=== PATIENT | male | born 1995 | race Caucasian/White ===

== ENCOUNTER 2023-08-18 08:42 | Outpatient (AMB) | payer OTHER, SELFPAY ==
--- NOTE | 2023-08-18 08:46 | MHC.PC.OV ---
Vital Signs 08/18/23 08:49 Height 6 ft 2 in Weight 163 lb 8 oz BMI 21.0 BP 120/82 Blood Pressure Location Lt brachial Position Sitting Respiration 14 Pulse 54 Pulse Source Pulse Oximeter Temp 97.5 F Temp Source Oral Pulse Oximetry (%) 96 Oxygen Delivery Method Room Air Intake Visit Reasons: est care Intake Note: new patient visit Manager Completions: Present Allergies No Known Allergies Allergy (Verified 08/18/23 08:46) Tobacco use date assessed: 08/18/23 Dental Screening Dental Screen Date: 08/18/23 Did you have a dental visit in the last 12 months?: Yes Did you have a dental problem in the last 6 months where you did not have access to dental care?: No Was dental information given to patient?: Patient has dentist HPI HPI Comments History of Present Illness Details This is a 28 year old male presenting to [facility]. He is in need of a physical exam. 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 He lives with his girlfriend. He relocated to this area recently. He endorses a rash in the right groin for a couple months. It doesn't bother him, and he says it looks like jock itch. Denies exposures to STIs. I reviewed his immunization record on his phone. He will sign a release or have this sent via the patient portal. His last Tdap was in 10/2014. He will schedule an eye exam. He just established care with a dentist. FOR[facility]LY [facility], [facility] Medical History (Updated 08/18/23 @ 11:58 by SABA Carreno) Testicular torsion Surgical History (Updated 08/18/23 @ 09:40 by SABA Carreno) H/O wisdom tooth extraction Right testicular torsion Family History (Updated 08/18/23 @ 09:43 by SABA Carreno) Mother Cancer of unknown origin Brother Colon polyp Father No problems noted. Brother No problems noted. 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 1. Little interest or pleasure in doing things: not at all 2. Feeling down, depressed, or hopeless: not at all 3. Trouble falling or staying asleep, or sleeping too much: not at all 4. Feeling tired or having little energy: not at all 5. Poor appetite or overeating: not at all 6. Feeling bad about yourself - or that you are a failure or have let yourself or your family down: not at all 7. Trouble concentrating on things, such as reading the newspaper or watching television: not at all 8. Moving or speaking so slowly that other people could have noticed. Or the opposite - being so fidgety or restless that you have been moving around a lot more than usual: not at all 9. Thoughts that you would be better off or of hurting yourself in some way: not at all Total score: 0 34908 - PHQ-9 Billing: Yes Source: Developed by Drs. Joe Cano, Matilda Rosales, Buck Ribeiro and colleagues, with an educational denise from [employer]. Thrive Questionnaire Date Thrive assessed: 08/18/23 I am a: Patient What is your living situation today?: I have a steady place to live Within the past 12 months, did the food you bought not last and you didn't have the money to get more?: Never true Within the past 12 months, did you worry whether your food would run out before you got money to buy more?: Never true Do you have trouble paying for medicines?: No Do you have trouble getting transportation to medical appointments?: No Do you have trouble paying your heating and electricity bill?: No Do you have trouble taking care of your child, family member or friend?: No Do you have trouble with day-to-day activities such as bathing, preparing meals, shopping, managing finances, etc.?: No Are you currently unemployed and looking for a job?: No Are you interested in more education?: No Please select the resources that you would like help with: None THRIVE Score: 0 AUDIT C Alcohol Use Questionnaire (AUDIT-C) 1. How often do you have a drink containing alcohol?: Never 3. How often do you have six or more drinks on one occasion?: Never Total Score: 0 Review of Systems Const All systems reviewed & are unremarkable except as noted in HPI and below Physical exam (Primary Care) Vital Signs: Last Vital Signs Temp 97.5 F 08/18/23 08:49 Pulse 54 08/18/23 08:49 Resp 14 08/18/23 08:49 BP 120/82 08/18/23 08:49 Pulse Ox 96 08/18/23 08:49 Oxygen Delivery Method Room Air 08/18/23 08:49 BMI result Body Mass Index 21.0 Tobacco/Smoking Status: Tobacco use Status Tobacco use date assessed 08/18/23 08/18/23 08:53 Patient Tobacco Use Status Never used Tobacco 08/18/23 08:53 e-Cigarette/Vaping Use Currently Using (on and off 08/18/23 08:53 vape user) PHQ-9: PHQ-9 Score PHQ-9: Total score 0 08/18/23 08:55 Thrive Assessment: Date of Thrive Assessment Date Thrive assessed 08/18/23 08/18/23 08:55 Const General: no acute distress and alert Nutritional Appearance: well nourished Orientation/consciousness: patient oriented x3 HENMT Head: Yes atraumatic Ears: external ears normal, TM's normal bilaterally and EAC's normal General nose exam: Normal nares present and No nasal discharge present Mouth: Normal oral and palatal mucosa present Teeth and gingiva: dentition normal Throat: Yes posterior oropharynx normal Eyes Pupils: Equal, round and reactive pupils present EOM: EOMs intact bilaterally Neck Thyroid: Thyroid normal Lymphatic: no lymphadenopathy noted Resp Effort & Inspection: normal respiratory effort Auscultation: clear to auscultation bilaterally Cardio Rate: regular rate Rhythm: regular rhythm Heart sounds: S1 normal heart sound present and S2 normal heart sound present Peripheral pulses: Peripheral pulses 2+ throughout GI Palpation (GI): Soft to palpation and No hepatosplenomegaly present Auscultation: normal bowel sounds Other: No palpable hernias or masses. Skin Other: Hyperpigmented mildly erythematous macular rash in the left pubic area. No discharge, swelling or tenderness. Neuro General: patient oriented x3, gait normal and moves all extremities Cranial nerves: Yes Equal, round and reactive pupils present Cognition (Neuro): normal cognition Extrem General: Yes full ROM Psych Appearance: grossly normal Affect: normal affect Attitude: cooperative Thought process: Normal thought process present Assessment and Plan Assessment & Plan (1) Annual physical exam: Code(s): Z00.00 - Encounter for general adult medical examination without abnormal findings Plan: Patient is seen today for a routine physical. As part of this visit we reviewed the following issues, which are considered and essential part of preventative health in this age group: - Testicular cancer screening, which includes self exam teaching - Blood pressure screening annually - Cholesterol screening - Screening for depression - Prevention of and/or testing for infectious diseases - declines screening for STIs. - Education about skin cancer - Recommendations about immunizations - Recommendation of an eye exam - Screening for substance abuse (2) Tinea cruris: Code(s): B35.6 - Tinea cruris Plan: Rx Lotrimin cream. Preventative strategy discussed. Follow up if there is no resolution. Orders: Orders Comprehensive Met. Panel Today Z00.00 - Encounter for general adult medical examination without abnormal findings, Z13.6 - Encounter for screening for cardiovascular disorders Lipid Panel Today Z00.00 - Encounter for general adult medical examination without abnormal findings, Z13.6 - Encounter for screening for cardiovascular disorders Medications: New clotrimazole 1% 1 appl topical BID 2 weeks 30 grams 1RF Refilled clotrimazole 1% 1 appl topical BID 2 weeks 30 grams 1RF Coding Level of Care Code New Pt Prev Care 18-39yr(54017 Diagnoses Annual physical exam Z00.00 Tinea cruris B35.6
[2023-08-18 08:49] VITALS: BP 120/82; PULSE 54; RESP 14; TEMP 36.4; O2SAT 96; BMI 21.0
== END 2023-08-18 12:56 | disposition home or self-care (01) ==
PROVIDERS: PCP Physician Assistant Medical; Visit Provider Physician Assistant Medical
DX: Z00.00 Encounter for general adult medical examination without abnormal findings (principal); B35.6 Tinea cruris
CPT/HCPCS: 99385

== ENCOUNTER 2023-08-18 09:36 | Outpatient (REF) | payer OTHER, SELFPAY ==
[2023-08-18 12:24] LABS: Alanine Aminotransferase 20 U/L (0-40); Albumin Level 4.8 g/dL (3.5-5.0); Alkaline Phosphatase 60 U/L (39-117); Anion Gap 7 (12-20); Aspartate Amino Transferase 21 U/L (5-37); Bilirubin Total 0.9 mg/dL (0.0-1.0); Blood Urea Nitrogen 13 mg/dL (9-16); Calcium 10.1 mg/dL (8.4-10.2); Carbon Dioxide 34 mmol/L (22-29); Chloride 102 mmol/L (96-108); Cholesterol 191 mg/dL (<200); Estimated Glomerular Filt Rate > 60; Glucose Random 81 mg/dL (60-115); HDL Cholesterol 65 mg/dL (>40); LDL Cholesterol Calculated 119 mg/dL (<100); Potassium 4.1 mmol/L (3.3-5.1); Sodium 139 mmol/L (135-145); Total Protein 7.5 g/dL (6.5-8.0); Triglycerides 39 mg/dL (<150)
== END 2023-08-18 09:37 | disposition home or self-care (01) ==
LOC: HO.WFDLDS 09:36
PROVIDERS: Visit Provider Physician Assistant Medical
DX: Z00.00 Encounter for general adult medical examination without abnormal findings (principal); Z13.6 Encounter for screening for cardiovascular disorders
CPT/HCPCS: 36415; 80053; 80061

== ENCOUNTER 2024-07-12 15:25 | Outpatient (AMB) | payer OTHER, SELFPAY ==
--- NOTE | 2024-07-12 15:33 | AM.OFFVISNUR ---
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
== END 2024-07-12 15:32 | disposition home or self-care (01) ==
LOC: HO.HMCFM 15:25
PROVIDERS: PCP Physician Assistant Medical; Visit Provider Physician Assistant Medical
DX: Z23 Encounter for immunization (principal)

== ENCOUNTER → 2024-07-12 15:25 | Outpatient (BNVA) | payer OTHER, SELFPAY | PROVIDERS: PCP Physician Assistant Medical; Visit Provider Physician Assistant Medical | DX: Z23 Encounter for immunization (principal) | CPT/HCPCS: 90471; 90715 ==

== ENCOUNTER 2024-11-15 08:26 | Outpatient (AMB) | payer OTHER, SELFPAY ==
--- NOTE | 2024-11-15 08:28 | A.OFFPC_ITS ---
Vital Signs 11/15/24 08:35 Height 6 ft 2.11 in Weight 165 lb 2 oz BMI 21.1 BP 102/62 Blood Pressure Location Rt brachial Position Sitting Respiration 14 Pulse 58 Pulse Source Pulse Oximeter Temp 97.3 F Temp Source Temporal Artery Scan Pulse Oximetry (%) 99 Oxygen Delivery Method Room Air Intake Visit Reasons: Annual pe Intake Note: Sim presents in the office today for his annual physical. Allergies No Known Allergies Allergy (Verified 11/15/24 08:32) Medication List - Last Reconciled 11/15/24 by SABA Carreno No Known Home Meds Tobacco use date assessed: 11/15/24 Dental Screening Dental Screen Date: 11/15/24 Did you have a dental visit in the last 12 months?: Yes Did you have a dental problem in the last 6 months where you did not have access to dental care?: No Was dental information given to patient?: Patient has dentist HPI HPI Comments History of Present Illness Details This is a 29-year-old male presenting for a physical exam. He recently got engaged. He is getting next October. His fiancee noticed a mole on his back. They are not sure if it has had any changes. It does not bother him. Denies family history of skin cancer. 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 I previously reviewed his immunization record on his phone. His last Tdap was in 10/2014. I explained that he is due and this is recommended, but he declined it today. I also recommended the seasonal influenza vaccine. Brother diagnosed with colon polyp around age 31. He is unsure if it was precancerous. He is going to contact him for additional information. Denies family history of colon cancer. He will schedule an eye exam. He sees a dentist regularly. ROS: Constitutional: No unexplained weight loss, fever, chills, fatigue or night sweats. Eyes: No vision changes, blurry vision, double vision, eye pain, eye redness, eye discharge. ENT: No hearing loss, sneezing, congestion, runny nose or sore throat. Respiratory: No shortness of breath, cough or sputum production. Cardiovascular: No chest pain, chest pressure or chest discomfort. No palpitations or pedal edema. Gastrointestinal: No anorexia, nausea, vomiting or diarrhea. No abdominal pain or blood in stool. Genitourinary: No dysuria, hematuria, urinary frequency. Denies testicular pain, swelling, masses. Neurologic: No headache, dizziness, syncope, unilateral weakness, ataxia, numbness or tingling in the extremities. Musculoskeletal: No muscle pain, back pain, joint pain or swelling. Hematologic/Lymphatics: No bleeding or bruising. No painful lymph nodes. Skin: See HPI. No rash or itching. Endocrine: No cold or heat intolerance. No polyuria or polydipsia. Psychiatric: No depression or anxiety. No SI/HI. Physical exam: Constitutional: Alert, in no distress. Head: Normocephalic. Eyes: Pupils are equal, round and reactive to light. Extraocular muscles intact. Ear, Nose and Throat: Canals clear. TMs normal. Normal nasal mucosa. No nasal discharge. No oral lesions. Neck: Supple, Full range of motion. No lymphadenopathy. No palpable thyroid masses. Respiratory: Clear to auscultation. Cardiovascular: S1 S2 regular. No murmurs. Gastrointestinal: Abdomen soft, non-tender, non-distended. Normal bowel sounds. No palpable masses. Genitourinary: Patient deferred. Neurologic: No focal neurological deficits. Symmetric patellar reflexes. Moves all extremities spontaneously. Sensation intact bilaterally. Skin: There is a round, symmetric, mildly raised light brown nevus on the lower back with 1 smaller region of darker brown color. The surrounding skin is normal. Musculoskeletal: No gross deformities. Normal range of motion. Extremities: Warm and well perfused. No clubbing, cyanosis or edema. Intact peripheral pulses. Psychiatric: Normal mood and affect [facility] Medical History (Updated 11/15/24 @ 09:12 by SABA Carreno) Nevus of back Family history of colonic polyps Routine physical examination Testicular torsion Surgical History (Updated 11/15/24 @ 09:03 by SABA Carreno) H/O wisdom tooth extraction Right testicular torsion Family History (Updated 11/15/24 @ 08:33 by Etta Keith MA) Mother Cancer of unknown origin Brother Colon polyp Father No problems noted. Brother No problems noted. 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 1. Little interest or pleasure in doing things: not at all 2. Feeling down, depressed, or hopeless: not at all 3. Trouble falling or staying asleep, or sleeping too much: several days 4. Feeling tired or having little energy: not at all 5. Poor appetite or overeating: not at all 6. Feeling bad about yourself - or that you are a failure or have let yourself or your family down: not at all 7. Trouble concentrating on things, such as reading the newspaper or watching television: not at all 8. Moving or speaking so slowly that other people could have noticed. Or the opposite - being so fidgety or restless that you have been moving around a lot more than usual: not at all 9. Thoughts that you would be better off or of hurting yourself in some way: not at all Total score: 1 Depression Screening Interpretation: Negative Depression Screening Done: Yes 53323 - PHQ-9 Billing: Yes Source: Developed by Drs. Joe Cano, Matilda Rosales, Buck Ribeiro and colleagues, with an educational denise from [employer]. Thrive Questionnaire Date Thrive assessed: 11/15/24 I am a: Patient What is your living situation today?: I have a steady place to live Within the past 12 months, did the food you bought not last and you didn't have the money to get more?: Never true Within the past 12 months, did you worry whether your food would run out before you got money to buy more?: Never true Do you have trouble paying for medicines?: I choose not to answer this question Do you have trouble getting transportation to medical appointments?: No Do you have trouble paying your heating and electricity bill?: No Do you have trouble taking care of your child, family member or friend?: No Do you have trouble with day-to-day activities such as bathing, preparing meals, shopping, managing finances, etc.?: No Are you currently unemployed and looking for a job?: No Are you interested in more education?: Yes Please select the resources that you would like help with: None Currently or been in a relationship where the following occur: No concerns reported THRIVE Score: 0 AUDIT C Alcohol Use Questionnaire (AUDIT-C) 1. How often do you have a drink containing alcohol?: Monthly or less 2. How many drinks containing alcohol do you have on a typical day when you are drinking?: 3 or 4 3. How often do you have six or more drinks on one occasion?: Less than monthly Total Score: 3 CHARLY-7 AMB Questionnaire CHARLY-7 Date CHARLY - 7 assessed: 11/15/24 Feeling nervous, anxious, or on edge: 0 = Not at all Not being able to stop or control worryin = Not at all Worrying too much about different things: 0 = Not at all Trouble relaxin = Not at all Being so restless that it is hard to sit still: 0 = Not at all Becoming easily annoyed or irritable: 0 = Not at all Feeling afraid as if something awful might happen: 0 = Not at all Total CHARLY-7 score (0-4 normal; 5-9 mild; 10-14 moderate; 15-21 severe): 0 Source: Developed by Drs. Joe Cano, Matilda Rosales, Buck Ribeiro and colleagues, with an educational denise from [employer]. CHARLY-7 Assessment Billing CHARLY-7 Assessment Tool: CHARLY-7 Assessment 15456 Physical exam (Primary Care) Vital Signs: Last Vital Signs Temp 97.3 F 11/15/24 08:35 Pulse 58 11/15/24 08:35 Resp 14 11/15/24 08:35 BP 102/62 11/15/24 08:35 Pulse Ox 99 11/15/24 08:35 Oxygen Delivery Method Room Air 11/15/24 08:35 BMI result Body Mass Index 21.1 Tobacco/Smoking Status: Tobacco use Status Tobacco use date assessed 11/15/24 11/15/24 08:39 Patient Tobacco Use Status Never used Tobacco 11/15/24 08:31 e-Cigarette/Vaping Use Currently Using (on and off 11/15/24 08:31 vape user) PHQ-9: PHQ-9 Score PHQ-9: Total score 1 11/15/24 08:31 Depression Screening Interpretation: Negative Thrive Assessment: Date of Thrive Assessment Date Thrive assessed 11/15/24 11/15/24 08:31 Currently or been in a relationship where the following occur: No concerns reported Coding Level of Care Code Est Pt Prev Care 18-39y(83029) Diagnoses Routine physical examination Z00.00 Nevus of back D22.5 Family history of colonic polyps Z83.719 Additional Codes CHARLY-7 Assessment Billing - CHARLY-7 Assessment Tool: CHARLY-7 Assessment 47732 ([id number]) PHQ-9 - 08316 - PHQ-9 Billing: Yes ([id number]) Assessment & Plan Assessment & Plan (1) Routine physical examination: Code(s): Z00.00 - Encounter for general adult medical examination without abnormal findings Category: Medical Plan: Patient is seen today for a routine physical. As part of this visit we reviewed the following issues, which are considered and essential part of preventative health in this age group: - Testicular cancer screening, which includes self exam teaching - Screening for colon cancer - Blood pressure screening - Cholesterol screening - Nutritional and exercise counseling - Counseling of injury prevention including fire prevention, smoke alarms and seat belt usage - Screening for depression - Prevention of and/or testing for infectious diseases - Education about skin cancer - Recommendations about immunizations - Recommendation of an eye exam - Screening for substance abuse (2) Nevus of back: Code(s): D22.5 - Melanocytic nevi of trunk Category: Medical Plan: Refer to dermatology. (3) Family history of colonic polyps: Code(s): Z83.719 - Family history of colon polyps, unspecified Category: Medical Plan: Refer to Gastroenterology for consideration of screening colonoscopy. He will try to obtain additional information from his brother. Plan Follow up in 1 year for annual physical exam. Orders: Orders Complete Blood Count no Diff Today Z00.00 - Encounter for general adult medical examination without abnormal findings Comprehensive Met. Panel Today Z00.00 - Encounter for general adult medical examination without abnormal findings Lipid Panel Today Z00.00 - Encounter for general adult medical examination without abnormal findings Referrals Gastroenterology Referral Z83.719 - Family history of colon polyps, unspecified Dermatology Referral D22.5 - Melanocytic nevi of trunk
[2024-11-15 08:35] VITALS: BP 102/62; PULSE 58; RESP 14; TEMP 36.3; O2SAT 99; BMI 21.1
== END 2024-11-15 09:06 | disposition home or self-care (01) ==
LOC: HO.HMCFM 08:27
PROVIDERS: PCP Physician Assistant Medical; Visit Provider Physician Assistant Medical
DX: Z00.00 Encounter for general adult medical examination without abnormal findings (principal); D22.5 Melanocytic nevi of trunk; Z83.719 Family history of colon polyps, unspecified

== ENCOUNTER → 2024-11-15 08:26 | Outpatient (BNVA) | payer OTHER, SELFPAY | PROVIDERS: PCP Physician Assistant Medical; Visit Provider Physician Assistant Medical | DX: Z00.00 Encounter for general adult medical examination without abnormal findings (principal); D22.5 Melanocytic nevi of trunk; Z83.719 Family history of colon polyps, unspecified; Z13.31 Encounter for screening for depression; Z13.39 Encounter for screening examination for other mental health and behavioral disorders | CPT/HCPCS: 96127 ==